=== PATIENT | male | born 1965 | race Caucasian/White ===

== ENCOUNTER 2025-01-14 11:14 | Observation (INO) | payer BC, OTHER ==
[2025-01-14 14:03] LABS: ABSOLUTE IMMATURE GRANULOCYTES 0.06 x10^3/uL (0.0-0.031); BASOPHILS # 0.04 x10^3/uL (0.01-0.08); EOSINOPHILS # 0.12 x10^3/uL (0.04-0.54); HEMATOCRIT 39.3 % (40.1-51.0); HEMOGLOBIN 13.4 g/dL (13.7-17.5); MCHC 34.1 g/dl (32.3-36.5); MEAN CELL VOLUME 86.9 fl (79.0-92.2); MEAN PLT VOLUME 10.9 fl (9.4-12.4); MONOCYTE % 11.8 % (5.3-12.2); PLATELET COUNT 147 x10^3/uL (163-337); RDW 12.5 % (12.2-16.1)
[2025-01-14 14:07] LABS: INR 1.09 (0.83-1.09); PROTHROMBIN TIME (PATIENT) 11.9 SEC (9.7-13.0)
[2025-01-14 14:11] LABS: POTASSIUM 3.9 mmol/L (3.5-5.1)
[2025-01-14 14:13] LABS: BLOOD UREA NITROGEN 22.8 mg/dL (7-18); CALCIUM 9.6 mg/dL (8.5-10.1)
[2025-01-14 14:16] LABS: CREATININE 1.1 mg/dL (0.55-1.3)
[2025-01-14 14:18] LABS: BILIRUBIN,TOTAL 0.5 mg/dL (0.2-1)
[2025-01-14] MEDS: INSULIN ASPART SLIDING SCALE (NOVOLOG) 1 VIAL SQ SCH (17:02)
[2025-01-14 17:13] VITALS: BMI 33.6
[2025-01-14] MEDS ORDERED: KETOROLAC TROMETHAMINE 15 MG/ML VIAL IVPUSH PRN (18:37)
[2025-01-14] MEDS: ACETAMINOPHEN 325 MG TABLET (FP) PO PRN (18:49)
[2025-01-15 09:23] LABS: HEMATOCRIT 41.7 % (40.1-51.0); HEMOGLOBIN 13.9 g/dL (13.7-17.5); MCHC 33.3 g/dl (32.3-36.5); MEAN CELL VOLUME 86.7 fl (79.0-92.2); PLATELET COUNT 144 x10^3/uL (163-337); RDW 12.3 % (12.2-16.1)
[2025-01-15 09:42] LABS: POTASSIUM 3.8 mmol/L (3.5-5.1)
[2025-01-15 10:09] LABS: ALBUMIN 3.9 g/dl (3.4-5.0); BLOOD UREA NITROGEN 20.4 mg/dL (7-18); CALCIUM 9.9 mg/dL (8.5-10.1); MAGNESIUM 2.3 mg/dL (1.8-2.4)
[2025-01-15 10:12] LABS: PHOSPHOROUS 3.4 mg/dL (2.5-4.9)
[2025-01-15 10:13] LABS: BILIRUBIN,TOTAL 0.7 mg/dL (0.2-1)
[2025-01-15] MEDS: CEFTRIAXONE 2 GM-D5W BAG 2 GM/50 ML BAG IVPB SCH (10:13)
[2025-01-15 10:14] LABS: TOT PROT 6.8 g/dl (6.4-8.2)
[2025-01-15] MEDS ORDERED: LIDOCAINE HCL 1%, 10 MG/ML (20ML VIAL) ONE (13:34)
[2025-01-15] MEDS ORDERED: BUPIVACAINE HCL/PF 0.5% (5MG/ML) 10 ML VIAL ONE (13:34)
[2025-01-15] MEDS ORDERED: ONDANSETRON 4 MG/2 ML VIAL IVPUSH PRN ×2 (14:00→15:29)
[2025-01-15] MEDS ORDERED: LACTATED RINGERS SOLUTION 1,000 ML IV SCH ×2 (14:00→15:29)
[2025-01-15] MEDS ORDERED: MIDAZOLAM HCL 2 MG/2 ML SINGLE DOSE VIAL ONE (14:45)
[2025-01-15] MEDS ORDERED: PROPOFOL 20 ML ONE (14:49)
[2025-01-15] MEDS: BUPIVACAINE HCL/PF 0.5% (5 MG/ML) 30 ML VIAL IJ ONE ×3 (14:59)
[2025-01-15] MEDS: LIDOCAINE HCL 1%, 10 MG/ML (20ML VIAL) INF ONE ×3 (14:59)
[2025-01-15] MEDS ORDERED: ONDANSETRON 4 MG/2 ML VIAL ONE (15:08)
[2025-01-15] MEDS ORDERED: ACETAMINOPHEN 325 MG TABLET (FP) PO PRN (15:29)
[2025-01-15] MEDS ORDERED: KETOROLAC TROMETHAMINE 15 MG/ML VIAL IVPUSH PRN (15:29)
[2025-01-15 16:57] VITALS: RESP 18; TEMP 97.3
[2025-01-15] MEDS: INSULIN ASPART SLIDING SCALE (NOVOLOG) 1 VIAL SQ SCH (17:17)
[2025-01-15 17:31] VITALS: BP 139/79; PULSE 86
[2025-01-16] MEDS ORDERED: CEFTRIAXONE 2 GM-D5W BAG 2 GM/50 ML BAG IVPB SCH (10:00)
== END 2025-01-15 17:47 | disposition home or self-care (01) ==
LOC: JER 11:14 → UNDOADMOB 15:00 → JERBED 15:00 → INTOOBSV 15:00 → JERBED 15:36 → J5S 15:36 → JERBED 01-15 09:59
PROVIDERS: ADMIT Internal Medicine
PROC: 3E013VG Introduction of Insulin into Subcutaneous Tissue, Percutaneous Approach (ICD-10-PCS; 2025-01-15)
PROC: 0QB Lower Bones, Excision (ICD-10-PCS; 2025-01-15)
PROC: 3E03329 Introduction of Other Anti-infective into Peripheral Vein, Percutaneous Approach (ICD-10-PCS; principal; 2025-01-15 10:00)
DX: M86.672 Other chronic osteomyelitis, left ankle and foot (principal); E11.9 Type 2 diabetes mellitus without complications; I50.9 Heart failure, unspecified; I73.9 Peripheral vascular disease, unspecified; Z95.5 Presence of coronary angioplasty implant and graft; Z72.0 Tobacco use
CPT/HCPCS: 36415; 73630-TC-LT; 80053; 82962; 83735; 84100; 85025; 85027; 85610; 86850; 86900; 86901; 87070; 87075; 87205; 93005; 93010; 94760; 99285-25; G0378